=== PATIENT | female | born 1960 | race Caucasian/White ===

== ENCOUNTER 2022-08-25 07:16 | Day surgery (SDC) | payer OTHER ==
[~2022-08-25] VITALS: Ht 160 cm; Wt 82.7 kg
[~2022-08-25 07:16] MED LIST: ANASTROZOLE1 MG PO; CALCIUM500 MG PO; DAILY MULTIPLE1 EACH PO; FLAX SEED OIL1000 MG PO; MONTELUKAST SOD10 MG PO; PROBIOTIC1 EAC1 PO; SYNTHROID75 MCG PO; VITAMIN B122500 MCG PO; VITAMIN D-32000 UNIT PO
--- NOTE | 2022-08-25 09:28 | NUR ---
08/25/22 09 Holly Kelly 0905 PT ARRIVED IN PACU SLEEPY. ABD SOFT AND PASSING FLATUS. 09 DR AT BEDSIDE. PT AWAKENS TO VERBAL STIMULI AND FALLS BACK TO SLEEP. 924 RESTING. REU.
--- NOTE | 2022-08-26 10:39 | OR ---
[facility] [address], [place] [address] Signed DATE OF OPERATION: 08/25/2022 SURGEON: Jayne Gamboa MD PREOPERATIVE DIAGNOSIS: History of hyperplastic polyp 2014. POSTOPERATIVE DIAGNOSES: 1. Scattered minimal diverticula. 2. Hyperplastic polyp of the rectosigmoid. PROCEDURE: Total colonoscopy to cecum with cold morcellation polypectomy x1. ANESTHESIA: Intravenous sedation, fentanyl 100 mcg and Versed 5 mg. INDICATIONS: This 62-year-old white woman is a patient of KALI Eason. She is known to me from the past having undergone colonoscopy in 2014 at which time, she had a hyperplastic polyp resected. She has no current symptoms of bleeding, diarrhea or constipation. She is admitted to undergo screening colonoscopy. She understands the risk of bleeding, infection, and perforation. FINDINGS: The prep was good. Complete colonoscopy was undertaken to the cecum without question. She had a few scattered diverticula of the sigmoid, but very minimal. There was a hyperplastic polyp of the rectosigmoid which was excised with cold morcellation technique. DESCRIPTION OF PROCEDURE: The patient was brought to the endoscopy suite and placed in the lateral decubitus position, given intravenous sedation to the point of slurred speech and nystagmus. Full cardiopulmonary monitoring was maintained. Digital rectal examination was found to be normal. An Olympus video colonoscope was passed in the rectum and manipulated throughout the colon noting a few scattered small diverticula of the sigmoid. The scope was ultimately advanced to the cecum. The ileocecal valve and appendiceal orifice were normal. The scope was withdrawn from that point. Examination throughout undertaken showed no sign Electronically Signed By: JAYNE GAMBOA MD 08/26/22 1039 PATIENT NAME: MESSI CHOI OPERATIVE REPORT DATE OF : 60 REPORT #: [id number] PHYSICIAN: JAYNE GAMBOA MD PCP: CHUYITA DEE PA-C REPORT IS CONFIDENTIAL AND NOT TO BE RELEASED WITHOUT AUTHORIZATION [facility] [address] [place] [id number] Signed of abnormality into the rectosigmoid where a small hyperplastic appearing polyp was noted. With various manipulations, cold morcellation polypectomy was undertaken. The scope was withdrawn. The rectum appeared normal. Scope was removed and the patient was taken to the recovery room in good condition. CONCLUDING DIAGNOSIS: Hyperplastic polyp, rectosigmoid, and a few scattered diverticula. PLAN: Recommend high-fiber diet. Repeat colonoscopy in 10 years, sooner if symptoms should develop. MD KARENA Pineda/LISSETTE /[id number] cc: Chuyita Dee PA-C Copies: CHUYITA DEE PA-C ~ Electronically Signed By: JAYNE GAMBOA MD 08/26/22 1039 PATIENT NAME: MESSI CHOI OPERATIVE REPORT DATE OF : 60 REPORT #: [id number] PHYSICIAN: JAYNE GABMOA MD PCP: CHUYITA DEE PA-C REPORT IS CONFIDENTIAL AND NOT TO BE RELEASED WITHOUT AUTHORIZATION
--- NOTE | 2022-08-28 10:11 | PATH ---
[facility] [address] [facility] [place] [address] Signed SPECIMEN(S): A RECTOSIGMOID POLYPS SPECIMEN SOURCE: A. RECTOSIGMOID POLYPS CLINICAL HISTORY: Pre: Hyperplastic polyp 2015. Post: Rectosigmoid polyp x 1. FINAL PATHOLOGIC DIAGNOSIS: Rectosigmoid, polypectomy: - Benign colonic mucosa with prominent intramucosal lymphoid aggregates. - No evidence of neoplasia. COMMENT: Examination of sections from three different levels of the tissue block discloses the presence of benign intramucosal lymphoid aggregates. Intramucosal lymphoid aggregates can sometimes appear as polyps endoscopically. They have no clinical significance. There is no evidence of dysplasia or malignancy. TWK:liza:C2NR MICROSCOPIC EXAMINATION: Histologic sections of all submitted blocks are examined by light microscopy. These findings, together with the gross examination, support the pathologic diagnosis. GROSS DESCRIPTION: The specimen, labeled and designated "Teague, rectosigmoid polyp," is received in formalin and consists of nine buitrago soft tissue fragments, ranging from 0.1-0.3 cm. Entirely submitted in (A1). VB (under the direct supervision of a pathologist) The Gross Description was prepared using a voice recognition system. The report was reviewed for accuracy; however, sound-alike word errors, addition and/or deletions may occur. If there is any question about this report, please contact Client Services. PERFORMING LABORATORY: The technical component was performed by [facility], [address] [place] [id number] (CLIA# [id number]). Professional interpretation was performed by [facility], [facility], [address], [place] [address] (CLIA# [id number]). PATIENT NAME: MESSI TEAGUE PATHOLOGY DATE OF : 60 REPORT #: [id number] PHYSICIAN: [facility] PATHOLOG[facility] PCP: CARLA LOPEZ PA-C REPORT IS CONFIDENTIAL AND NOT TO BE RELEASED WITHOUT AUTHORIZATION [address] [place], [place] [address] Signed Diagnostician: Morro Bustillo MD Pathologist Electronically Signed 08/28/2022 Copies: ~ PATIENT NAME: MESSI TEAGUE NICOLÁS PATHOLOGY DATE OF : 60 REPORT #: [id number] PHYSICIAN: [facility] PATHOLOG[facility] PCP: CARLA LOPEZ PA-C REPORT IS CONFIDENTIAL AND NOT TO BE RELEASED WITHOUT AUTHORIZATION
== END 2022-08-25 09:50 | disposition home or self-care (01) ==
LOC: DS 07:16 → OPS 07:16 → DS 08:30 → OPS 09:50
PROVIDERS: ATTEND Surgery
PROC: 0DBE8ZZ Excision of Large Intestine, Via Natural or Artificial Opening Endoscopic (ICD-10-PCS; principal; 2022-08-25 08:30)
DX: Z12.11 Encounter for screening for malignant neoplasm of colon (principal); K63.5 Polyp of colon; K57.30 Diverticulosis of large intestine without perforation or abscess without bleeding; Z86.010 Personal history of colon polyps; E03.9 Hypothyroidism, unspecified; Z85.3 Personal history of malignant neoplasm of breast; K62.1 Rectal polyp
CPT/HCPCS: 99153; G0500; J2250; J3010